=== PATIENT | female | born 1970 | race Caucasian/White ===

== ENCOUNTER 2020-02-10 14:02 | Emergency (ER) | payer OTHER ==
--- NOTE | 2020-02-10 16:23 | ER Document Report ---
ED General - General Chief Complaint: Shortness Of Breath Stated Complaint: SHORTNESS OF BREATH Time Seen by Provider: 02/10/20 15:53 Notes: CHIEF COMPLAINT: Multiple complaints HPI: 49-year-old female otherwise reasonably healthy presenting for evaluation of multiple complaints. Patient states over the last 3 days she feels like she is short of breath and yawning a lot in order to get a deep breath in. No recent travel or prolonged immobilization. Not on hormone replacement or control. No family history of clotting disorders. Patient states that she had a PCP visit 2 weeks ago for a general physical and was told her heart rate was elevated. Patient has not had a fever. 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 Patient states over the last several days she has also had an intermittent midsternal chest discomfort that comes and goes Not associated specifically with worsened shortness of breath no radiation into the back or neck. Patient does complain of cold sensation in the bilateral arms ROS: See HPI - all other systems were reviewed and are otherwise negative Constitutional: no fever Eyes: no drainage, no blurred vision ENT: no runny nose, no sore throat Cardiovascular: no chest pain Resp: + SOB, no cough GI: no vomiting, no diarrhea, no abdominal pain : no dysuria Integumentary: no rash Allergy: no hives Musculoskeletal: no extremity pain or swelling Neurological: no numbness/tingling, no weakness MEDICATIONS: I agree with the patient medications as charted by the RN. ALLERGIES: I agree with the allergies as charted by the RN. PAST MEDICAL HISTORY/PAST SURGICAL HISTORY: Reviewed and agree as charted by RN. SOCIAL HISTORY: Reviewed and agree as charted by RN. FAMILY HISTORY: No significant familial comorbid conditions directly related to patient complaint EXAM: Reviewed vital signs as charted by RN. CONSTITUTIONAL: Alert and oriented and responds appropriately to questions. Well-appearing; well-nourished HEAD: Normocephalic; atraumatic EYES: PERRL; Conjunctivae clear, sclerae non-icteric ENT: normal nose; no rhinorrhea; moist mucous membranes; pharynx without lesions noted, no uvula edema or deviation, no tonsillar hypertrophy, phonation normal NECK: Supple without meningismus; non-tender; no cervical lymphadenopathy, no masses CARD: RRR; no murmurs, no clicks, no rubs, no gallops; symmetric distal pulses RESP: Normal chest excursion without splinting or tachypnea; breath sounds clear and equal bilaterally; no wheezes, no rhonchi, no rales, pulse oximetry 96% on room air not hypoxic. Does not become dyspneic with speaking ABD/GI: Normal bowel sounds; non-distended; soft, non-tender, no rebound, no guarding; no palpable organomegaly or masses. BACK: The back appears normal and is non-tender to palpation, there is no CVA tenderness EXT: Normal ROM in all joints; non-tender to palpation; no cyanosis, no effusions, no edema SKIN: Normal color for age and race; warm; dry; good turgor; no acute lesions noted NEURO: Moves all extremities equally; Motor and sensory function intact PSYCH: The patient's mood and manner are appropriate. Grooming and personal hygiene are appropriate. MDM: 49-year-old female vague shortness of breath over the last 3 days, PERC negative. EKG normal sinus rhythm with a ventricular rate of 80 with no other ectopy evaluated and reviewed by emergency department physician. MS 152. Not having chest pain currently. Will obtain 1 set of screening cardiac enzymes on the patient. Will obtain chest x-ray, COVID test - Related Data Allergies/Adverse Reactions: No Known Allergies Allergy (Unverified 02/10/20 16:34) Past Medical History - Social History Smoking Status: Unknown if Ever Smoked Family History: Reviewed & Not Pertinent Physical Exam - Vital signs Vitals: Temp Pulse Resp BP Pulse Ox 98.9 F 85 19 128/61 H 96 02/10/20 15:35 02/10/20 15:35 02/10/20 15:35 02/10/20 15:35 02/10/20 15:35 Course - Re-evaluation Re-evalutation: 02/10/20 19:03 Patient's lab work does not show any acute abnormalities. Patient will be a person under investigation at this time. She has had no chest pain while she has been in the emergency department her screening troponin was negative. Will refer patient to cardiology for outpatient follow-up of her chest pain shortness of breath complaints. She will also follow-up with her primary care provider. - Vital Signs Vital signs: Temp Pulse Resp BP Pulse Ox 98.5 F 85 19 128/61 H 96 02/10/20 15:40 02/10/20 15:35 02/10/20 15:35 02/10/20 15:35 02/10/20 15:35 - Laboratory Result Diagrams: 02/10/20 17:11 02/10/20 17:11 Laboratory results interpreted by me: 02/10/20 02/10/20 17:11 17:11 WBC 3.0 L RDW 14.5 H Adams % (Auto) 15.4 H Absolute Neuts (auto) 1.6 L Sodium 136.9 L Chloride 108 H Glucose 115 H AST 43 H Discharge - Discharge Clinical Impression: Shortness of breath Condition: Stable Disposition: HOME, SELF-CARE Instructions: Dyspnea, Nonspecific ([facility]) Additional Instructions: Your imaging studies and lab work today did not show any acute findings. Your heart labs were normal. Your TSH and thyroid studies were normal. It is important that you follow-up with both her primary care provider and oral and maxillofacial surgeon for further evaluation of your shortness of breath complaint as we ll as the intermittent chest pain you have been having. You are considered a person under investigation at this time. Quarantine at home until you have a negative study, these generally take approximately 48 hours. You will hear from the hospital about your result. If you have worsening symptoms, shortness of breath or persistent chest pain return for reevaluation
--- NOTE | 2020-02-10 16:46 | RADIOLOGY REPORT (SQ) ---
EXAM DESCRIPTION: CHEST SINGLE VIEW IMAGES COMPLETED DATE/TIME: 02/10/2020 4:24 pm REASON FOR STUDY: sob COMPARISON: None. TECHNIQUE: Single frontal radiographic view of the chest acquired. NUMBER OF VIEWS: One view. LIMITATIONS: None. FINDINGS: LUNGS AND PLEURA: No pneumothorax. No consolidation or pleural effusion. MEDIASTINUM AND HILAR STRUCTURES: No contour abnormalities. HEART AND VASCULAR STRUCTURES: Heart normal size. BONES: No acute findings. HARDWARE: None in the chest. OTHER: No other significant finding. IMPRESSION: NO ACUTE FINDINGS. TECHNICAL DOCUMENTATION: JOB ID: [id number] [id number] [employer]- All Rights Reserved Reading location - IP/workstation name: [email or web address]
--- NOTE | 2020-02-10 17:25 | EKG REPORT ---
SEVERITY:- NORMAL ECG - SINUS RHYTHM : Confirmed by: Letty Teixeira MD 10-Feb-2020 17:24:43
[2020-02-10 17:53] LABS: ABSOLUTE LYMPHOCYTES (AUTO) 0.9 10^3/uL (0.5-4.7); ABSOLUTE MONOCYTES (AUTO) 0.5 10^3/uL (0.1-1.4); ABSOLUTE NEUT (AUTO) 1.6 10^3/uL (1.7-8.2); BASOPHILS % (AUTO) 0.3 % (0-2); EOSINOPHILS % (AUTO) 0.5 % (0-6); HEMATOCRIT 36.4 % (36.0-47.0); HEMOGLOBIN 12.3 g/dL (12.0-15.5); LYMPHOCYTES % (AUTO) 28.7 % (13-45); MEAN CORPUSCULAR HEMOGLOBIN 29.1 pg (27.0-33.4); MEAN CORPUSCULAR HGB CONC 33.7 g/dL (32.0-36.0); MEAN CORPUSCULAR VOLUME 87 fl (80-97); MONOCYTES % (AUTO) 15.4 % (3-13); PLATELET COUNT 182 10^3/uL (150-450); RED BLOOD COUNT 4.21 10^6/uL (3.72-5.28); RED CELL DISTRIBUTION WIDTH 14.5 % (11.5-14.0); SEGMENTED NEUTROPHILS % (AUTO) 55.1 % (42-78); TOTAL CELLS COUNTED % (AUTO) 100 %
[2020-02-10 18:10] LABS: ALBUMIN 4.2 g/dL (3.5-5.0); ALKALINE PHOSPHATASE 77 U/L (38-126); ANION GAP 6 (5-19); ASPARTATE AMINO TRANSFERASE 43 U/L (14-36); BILIRUBIN,TOTAL 0.5 mg/dL (0.2-1.3); BLOOD UREA NITROGEN 12 mg/dL (7-20); CALCIUM 9.2 mg/dL (8.4-10.2); CARBON DIOXIDE 23 mmol/L (22-30); CHLORIDE 108 mmol/L (98-107); GLUCOSE 115 mg/dL (75-110); POTASSIUM 4.4 mmol/L (3.6-5.0); TOTAL PROTEIN 7.9 g/dL (6.3-8.2)
[2020-02-10 19:35] VITALS: BP 139/79
== END 2020-02-10 19:35 | disposition home or self-care (01) ==
LOC: ER 14:02
DX: R06.02 Shortness of breath (principal); R07.9 Chest pain, unspecified; Z20.828 Contact with and (suspected) exposure to other viral communicable diseases
CPT/HCPCS: 93005; 99284; 36415; 84443; 85025; 87635; 80053; 84484; 71045; 93010; C9803